=== PATIENT | female | born 1995 | race Caucasian/White ===

== ENCOUNTER 2016-08-03 19:40 | Emergency (ER) | payer OTHER ==
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
--- NOTE | 2016-08-03 22:50 | ED MAR SUMMARY ---
..... Medication Administration Record [facility] [address] [place], [place] [id number] Patient: PETE RONQUILLO Visit ID: [id number] 20y, F Weight: 56.6 kg Height/Length: 66 in BMI: 20.1 ALLERGIES: None
--- NOTE | 2016-08-03 22:50 | ED MED RECONCILIATION SUMMARY ---
Patient: PETE RONQUILLO Medication Reconciliation Report [facility] VisitID: [id number] [address] [place] [address] 20y, F Registration Date/Time: 08/03/2016 Weight: 56.6 kg Height/Length: 66 in. BMI: 20.1 ALLERGIES: None The patient's Home Medications are listed below: THE FOLLOWING MEDICATIONS NEED TO BE RECONCILED: BusPIRone HCl Oral PARoxetine HCl Oral TraZODone HCl Oral The source(s) of the original Home Medication information: patient The following Medications were given to the patient in the Emergency Department: None. The following Medications were prescribed to the patient: None.
--- NOTE | 2016-08-03 22:50 | ED MED RECONCILIATION SUMMARY ---
Patient: PETE RONQUILLO Medication Reconciliation Report [facility] VisitID: [id number] [address] [place] [address] 20y, F Registration Date/Time: 08/03/2016 Weight: 56.6 kg Height/Length: 66 in. BMI: 20.1 ALLERGIES: None The patient's Home Medications are listed below: THE FOLLOWING MEDICATIONS NEED TO BE RECONCILED: BusPIRone HCl Oral PARoxetine HCl Oral TraZODone HCl Oral The source(s) of the original Home Medication information: patient The following Medications were given to the patient in the Emergency Department: None. The following Medications were prescribed to the patient: None.
--- NOTE | 2016-08-03 22:50 | ED DISCHARGE INSTRUCTIONS ---
Patient: PETE RONQUILLO General Instructions [facility] VisitID: [id number] [place] [address] 20y, F Registration Date/Time: 08/03/2016 First degree sunburn. INSTRUCTIONS (Avoid sun exposure until this has cleared.). Follow-up: Follow up with your doctor as needed. Call for an appointment. Screening today revealed the patient's blood pressure to be in the pre-hypertensive range. The patient should follow up with a primary care provider for blood pressure management. ADDITIONAL INFORMATION Sunburn A sunburn is an injury to the skin caused by over-exposure to ultraviolet (UV) light from the sun. The skin becomes pink or red and painful. There may be headache and a low grade fever. Very severe sunburns may cause blistering and fluid draining from the skin. Open blisters may become infected, so watch for the signs below. The reaction begins to get better after 12 days. A few days later the skin begins to peel. Depending on how severe the burn is, it may take up to three weeks to fully heal. Home care The following guidelines will help you care for you sunburn at home: 1) Apply an ice pack (ice cubes in a plastic bag, wrapped in a towel) over the injured area for 20 minutes every 12 hours the first day for pain relief. Continue this 34 times a day until the pain goes away. Cool baths and showers will also give relief. 2) Imkm-kln-[id number] first-aid creams and sprays contain lidocaine or benzocaine, an anesthetic which also relieves pain. However, some persons are sensitive to "fabi". If redness or itching increases, discontinue their use. 3) If blisters appear, don't break them. Open blisters slow the healing process and increase the risk of infection. Treat open blisters with antibacterial cream or ointment. 4) Wash the burned area daily with soap and water. Pat dry with a clean towel. Apply a moisturizing cream with aloe. Hydrocortisone cream (sold over the counter) may help decrease pain and swelling and speed up healing. If a dressing was applied, reapply it until any open blisters dry up. If the bandage sticks, soak it off in warm water. 5) You may use ibuprofen or naproxen to control pain, unless another pain medicine was prescribed. If you have chronic liver or kidney disease or ever had a stomach ulcer or GI bleeding, talk with your doctor before using these medicines. Do not use ibuprofen in children under six months of age. 6) Drink plenty of fluids to avoid dehydration. Prevention Sun exposure damages the DNA of skin cells and contributes to aging skin. It is the main cause of skin cancer. Protect your skin using the tips below: Limit your exposure to UV light. The sun is strongest during the hours 10 a.m. and 4 p.m. If possible, arrange your sun exposure to be before or after those hours. The effect is more intense at the beach where light reflects off the sand and water, and at higher altitudes, especially where there is reflecting snow. You can even get a sunburn on a cloudy day, since most of the UV light passes through clouds. Cover up with clothing and a hat. Clothing is more effective than sunscreen in blocking UV light. Stay in the shade or carry an umbrella. Apply sunscreen to uncovered skin. Reapply every two hours, and sooner if it is washed away by sweating or water. Use a sunscreen rated at SPF 15 or higher. Wear sunglasses to protect your eyes from UV exposure. Many heart, nausea, anti-inflammatory, and diabetic medications, as well as antibiotics and diuretics, can increase yoursensitivityto the sun. Check medication pamphlets and talk with your doctor if you are unsure about your increased risk of sun sensitivity. Sunscreens may not prevent this response. Follow-up care Most sunburns heal without infection. Occasionally an infection may occur despite proper treatment. Therefore, watch for the signs of infection listed below. When to seek medical care Get prompt medical attention if any of the following occur: Increasing pain Increasing redness, or red streaks leading away from an open blister Swelling or pus coming from open blisters Fever over 100.4 F (38.0 C) You have been given the following additional information: Sunburn (Electronically signed by Jordan Warner Dr. 08/03/2016 22:50)
--- NOTE | 2016-08-03 22:50 | ED MAR SUMMARY ---
..... Medication Administration Record [facility] [address] [id number] Patient: PETE RONQUILLO Visit ID: [id number] 20y, F Weight: 56.6 kg Height/Length: 66 in BMI: 20.1 ALLERGIES: None
== END 2016-08-03 20:05 | disposition home or self-care (01) ==
LOC: ED SRH 19:40
DX: L55.0 Sunburn of first degree (principal)